=== PATIENT | female | born 1990 | race Caucasian/White ===

== ENCOUNTER 2020-04-18 12:49 | Emergency (ER) | payer BC ==
[~2020-04-18] VITALS: Ht 162.5 cm; Wt 59.8 kg
[~2020-04-18 12:49] MED LIST: BIRTH CONTROL PO; DCS100C PO; HYDR-3454 PO; HYDR200T46 PO
[2020-04-18 12:59] VITALS: BP 124/73
[2020-04-18 13:16] LABS: BILIRUBIN,URINE NEGATIVE (NEGATIVE); CLARITY,URINE CLEAR; COLOR,URINE YELLOW; GLUCOSE, URINE (UA) NEGATIVE (NEGATIVE); KETONES,URINE NEGATIVE (NEGATIVE); LEUKOCYTE ESTERASE ,URINE NEGATIVE (NEGATIVE); NITRITE,URINE NEGATIVE (NEGATIVE); PH,URINE 6.5 (5-9); PROTEIN,URINE NEGATIVE (NEGATIVE)
[2020-04-18 13:40] LABS: BACTERIA,URINE TRACE /HPF; SQUAMOUS EPITHELIAL CELL,UR 0-2 /HPF
--- NOTE | 2020-04-18 13:41 | ED GU-Female ---
General Chief Complaint: Abdominal/GI Problems Stated Complaint: LLQ PAIN ABOUT 8 WKS Nursing Triage Note: PT REPORTS TO ED FOR LEFT SIDED PELVIC PAIN THAT STARTED THIS MORNING. PT REPORTS TO BE ABOUT SEVEN WEEKS . DENIES ANY VAGINAL BLEEDING AT THIS TIME. PT ABM TO ROOM 07 WITHOUT DIFFICULTY. Nursing Sepsis Screen: No Definite Risk Source: patient Exam Limitations: no limitations History of Present Illness Date Seen by Provider: Apr 18, 2020 Time Seen by Provider: 13:21 Initial Comments Patient is a G1 at approximately 8 weeks with a positive urine a couple days ago who presents with 1 day of left lower quadrant abdominal sharp cramping pain that got better on its own by the time she arrived here. Started about an hour or 2 prior. She is having no vaginal bleeding, discharge. No nausea fever chills cough or shortness of air. She called and set up an appointment with Dr. Wilson on the . She has not had any imaging. She has not taken anything for the pain. She has a history of appendectomy. She says she has a history of kidney stones but this is nothing like that. Allergies and Home Medications Allergies Uncoded Allergies: STEROIDS (Allergy, Mild, 09/30/13) CHILD Home Medications Docusate Sodium 100 Mg Capsule, 1 CAP PO BID PRN for CONSTIPATION Prescribed by: IMER CAVAZOS on 10/01/13 0916 Hydrocodone Bit/Acetaminophen 1 Each Tablet, 1 TAB PO Q4H PRN for PAIN Prescribed by: IMER CAVAZOS on 10/01/13 0916 Hydroxychloroquine Sulfate 200 Mg Tab, 200 MG PO DAILY, (Reported) [ Control] , 1 TAB PO DAILY, (Reported) Patient Home Medication List Home Medication List Reviewed: Yes Review of Systems Review of Systems Constitutional: No chills, No fever EENTM: No ear discharge, No ear pain Respiratory: No cough, No short of breath Cardiovascular: No Hx of Intervention, No palpitations Gastrointestinal: abdominal pain; No constipation, No diarrhea Genitourinary: denies burning, denies discharge Musculoskeletal: No back pain, No joint pain Skin: No pruritus, No rash Psychiatric/Neurological: Denies Anxiety, Denies Depressed All Other Systemes Reviewed Negative Unless Noted: Yes Past Noisbet-Fbpwne-Eslwbu Hx Patient Social History Alcohol Use: Denies Use Recreational Drug Use: No Smoking Status: Never a Smoker 2nd Hand Smoke Exposure: No Recent Foreign Travel: No Contact w/Someone Who Travel: No Recent Infectious Disease Expo: No Recent Hopitalizations: No Seasonal Allergies Seasonal Allergies: No Past Medical History Surgeries: No Respiratory: No Cardiac: No Neurological: No Reproductive Disorders: No Gastrointestinal: Yes (LACTOSE INTOLERANCE, CELIAC) Musculoskeletal: Yes (JUVENILE RHEUMATOID ARTHRITIS) Arthritis, Rheumatoid Arthritis Endocrine: No Cancer: No Psychosocial: No Integumentary: No Blood Disorders: No Family Medical History Cancer GRANDFATHER (PATIENT UNSURE OF TYPE OF CANCER) Physical Exam Vital Signs Vital Signs - First Documented 04/18/20 12:59 Temp 36.6 Pulse 111 Resp 16 B/P (MAP) 124/73 (90) O2 Delivery Room Air Capillary Refill : Less Than 3 Seconds Height, Weight, BMI Height: 5'4.00" Weight: 110lbs. 0.0oz. 49.856240kc; 22.00 BMI Method: General Appearance: WD/WN, no apparent distress HEENT: PERRL/EOMI, pharynx normal Neck: full range of motion, normal inspection Cardiovascular: normal peripheral pulses, regular rate, rhythm Respiratory: no respiratory distress, no accessory muscle use Gastrointestinal: normal bowel sounds, soft, tenderness (Mild left lower quadrant tenderness without Rovsing sign, McBurney's point tenderness, mesenteric signs, psoas sign.) Skin: normal color, warm/dry Progress/Results/Core Measures Suspected Sepsis Recent Fever Within 48 Hours: No Infection Criteria Present: None New/Unexplained Altered Menta: No Sepsis Screen: No Definite Risk SIRS Temperature: Pulse: 111 Respiratory Rate: 16 Blood Pressure 124 /73 Mean: 90 Results/Orders Lab Results Laboratory Tests Test 04/18/20 13:03 Range/Units Urine Color YELLOW Urine Clarity CLEAR Urine pH 6.5 5-9 Urine Specific [place] 1.020 1.016-1.022 Urine Protein NEGATIVE NEGATIVE Urine Glucose (UA) NEGATIVE NEGATIVE Urine Ketones NEGATIVE NEGATIVE Urine Nitrite NEGATIVE NEGATIVE Urine Bilirubin NEGATIVE NEGATIVE Urine Urobilinogen 0.2 < = 1.0 MG/DL Urine Leukocyte Esterase NEGATIVE NEGATIVE Urine RBC (Auto) NEGATIVE NEGATIVE Urine RBC NONE /HPF Urine WBC NONE /HPF Urine Squamous Epithelial Cells 0-2 /HPF Urine Crystals NONE /LPF Urine Bacteria TRACE /HPF Urine Casts NONE /LPF Urine Mucus NEGATIVE /LPF Urine Culture Indicated NO My Orders Orders - ALEJANDRA SHAHID Ua Culture If Indicated (04/18/20 12:51) Urine Bedside (04/18/20 12:51) Vital Signs/I&O 04/18/20 12:59 Temp 36.6 Pulse 111 Resp 16 B/P (MAP) 124/73 (90) O2 Delivery Room Air Capillary Refill : Less Than 3 Seconds Blood Pressure Mean: 90 Progress Note #1: Time: 13:38 Progress Note She is no longer having any significant discomfort and declined any Tylenol. We did offer to send her to [facility] for ultrasound versus setting 1 up tomorrow and she says she is fine to wait. She is not having any bleeding. We have given her return precautions. Urinalysis pending. Progress Note #2: Time: 13:42 Progress Note Urinalysis is clear and the patient is in no acute distress. Departure Impression Primary Impression: Qualified Codes: Z3A.08 - 8 weeks gestation of Additional Impression: LLQ abdominal pain Disposition: 01 HOME, SELF-CARE Condition: Stable Departure-Patient Inst. Decision time for Depature: 13:40 Referrals: NO,LOCAL PHYSICIAN (PCP/Family) Primary Care Physician Patient Instructions: Acute Pelvic Pain (DC), Care Add. Discharge Instructions: Return to the ER if you are having intractable pelvic pain or bleeding. Nothing in the pelvis/vagina until cleared by your OB doctor. Tomorrow call outpatient and set up a pelvic ultrasound. Tylenol 1000 mg every 8 hours as necessary for pain. Warm heating pads. Benadryl 25 mg every 6 hours as necessary for allergies or insomnia. All discharge instructions reviewed with patient and/or family. Voiced understanding. Work/School Note: Work Release Form Date Seen in the Emergency Department: Apr 18, 2020 Return to Work: Apr 20, 2020 Restrictions: No Restrictions ALEJANDRA SHAHID Apr 18, 2020 13:41
== END 2020-04-18 13:50 | disposition home or self-care (01) ==
LOC: EDUNIT# 12:49 → ER 12:53
DX: O26.891 Other specified pregnancy related conditions, first trimester (principal); R10.32 Left lower quadrant pain; Z3A.08 8 weeks gestation of pregnancy; Z88.8 Allergy status to other drugs, medicaments and biological substances; Z80.9 Family history of malignant neoplasm, unspecified
CPT/HCPCS: 81000; 84703; 99282

== ENCOUNTER → 2020-04-19 | Outpatient (CLI) | payer BC ==
--- NOTE | 2020-04-19 12:14 | Diagnostic Imaging Report ---
Pelvic ultrasound. Indication: Pelvic pain. There are no prior ultrasound studies available for comparison. The prior CT abdomen/pelvis exam of 09/30/2013 did show acute appendicitis with associated free fluid in the pelvis. On this exam there appear to be either 2 contiguous or a single thinly septated cyst in the superior to the uterus. These cysts measure 5.4 x 5.2 x 6.6 and 4.6 x 4.5 x 4.9 cm in size. The cysts are probably arising from the ovary although is not certain which ovary they are arising from. There was blood flow to the ovary and there is no sign of torsion. The other ovary was not well visualized. There is no solid pelvic mass or free fluid collection noted. There is a small gestational sac within the endometrium of the uterus. The sac measures correspond to a 5 week 6 day previously +/- 1 week. However there is no evidence for an embryonic pole. This finding may be secondary to early live . The possibility of blighted ovum should also be considered. Correlation with the patient beta HCG levels would be recommended. The uterus itself is not enlarged. Impression: 1. There is a large thinly septated cystic mass or 2 separate cysts along the superior aspect of the uterine fundus. These are most likely ovarian in nature. There is no acute pelvic abnormality noted otherwise. 2. There is a gestational sac within the uterus but there is no evidence for an embryonic pole. Whether this is related to an early live or to a blighted ovum is not certain. Correlation with patient's beta hCG levels would be recommended. These results were conveyed to Dr. Indio Maier in the Emergency Room. Dictated by: Dictated on workstation # [id number]
== END ==
LOC: RAD 09:22
PROVIDERS: ATTEND Emergency Medicine
DX: N85.8 Other specified noninflammatory disorders of uterus (principal)
CPT/HCPCS: 76801; 76817

== ENCOUNTER 2020-05-17 18:46 | Emergency (ER) | payer BC ==
[~2020-05-17] VITALS: Ht 162 cm; Wt 61.6 kg
[2020-05-17] MEDS ORDERED: LACTATED RINGERS 1,000 ML IV ONE (19:00)
[2020-05-17 19:18] LABS: BASOPHILS % (AUTO) 0 % (0-10); EOSINOPHILS % (AUTO) 0 % (0-10); HEMATOCRIT 38 % (35-52); HEMOGLOBIN 13.3 g/dL (11.5-16.0); LYMPHOCYTES # (AUTO) 2.3 10^3/uL (1.0-4.0); LYMPHOCYTES % (AUTO) 11 % (12-44); MEAN CORPUSCULAR HEMOGLOBIN 31 pg (25-34); MEAN CORPUSCULAR HGB CONC 35 g/dL (32-36); MEAN CORPUSCULAR VOLUME 89 fL (80-99); MEAN PLATELET VOLUME 9.9 fL (9.0-12.2); MONOCYTES # (AUTO) 0.9 10^3/uL (0.0-1.0); MONOCYTES % (AUTO) 4 % (0-12); NEUTROPHILS # (AUTO) 16.8 10^3/uL (1.8-7.8); NEUTROPHILS % (AUTO) 84 % (42-75); PLATELET COUNT 343 10^3/uL (130-400); WHITE BLOOD COUNT 20.2 10^3/uL (4.3-11.0)
[2020-05-17 19:25] LABS: BILIRUBIN,URINE NEGATIVE (NEGATIVE); CLARITY,URINE CLEAR; COLOR,URINE YELLOW; GLUCOSE, URINE (UA) NEGATIVE (NEGATIVE); KETONES,URINE 2+ (NEGATIVE); LEUKOCYTE ESTERASE ,URINE NEGATIVE (NEGATIVE); NITRITE,URINE NEGATIVE (NEGATIVE); PH,URINE 7.5 (5-9); PROTEIN,URINE NEGATIVE (NEGATIVE)
--- NOTE | 2020-05-17 19:27 | ED Abdominal Pain ---
General Chief Complaint: Abdominal/GI Problems Stated Complaint: , LLQ ABD AND BACK PAIN Nursing Triage Note: Pt ambulatory to ER with c/o left flank pain and left lower abdominal/pelvic pain that began at around 02:30 AM today. Pt has had nausea and vomiting today. Pt is 10 weeks with due date of December 19, 2020. Sepsis Screen: No Definite Risk Source of Information: Patient History of Present Illness Date Seen by Provider: May 17, 2020 Time Seen by Provider: 18:56 Initial Comments PT ARRIVES VIA POV FROM HOME C/O LEFT FLANK PAIN SINCE 199 THIS AM ALSO HAS PAIN IN LLQ AND SUPRAPUBIC AREA NO PROBLEMS URINATING AND NO HEMATURIA NO FEVER/SWEATS/CHILLS NO DIARRHEA OR CONSTIPATION NO RECENT ILLNESS, NO KNOWN SICK CONTACTS OR EXPOSURE TO COVID-19 PT IS APPROXIMATELY 10 WEEKS WITH LMP 02/18/20 AND EDC OF 12/20/19, PER PT. HAS HAD 2 ULTRASOUNDS WITH THIS --SHOWING IUP, HAD OVARIAN CYST WHICH RUPTURED AND REPEAT ULTRASOUND WAS NORMAL, PER PT SEEN HERE 04/18/20 FOR LLQ PAIN, AND HAD OUTPT ULTRASOUND HERE 04/19/--IUP WITH GESTATIONAL SAC OF 5-6 WEEKS SIZE, AND OVARIAN CYST. HAD FOLLOW UP ULTRASOUND WITH HER OB DR. AT [facility] HAS HAD ONGOING NAUSEA WITH , BUT TODAY WAS FIRST TIME SHE HAS VOMITED--EMESIS X 2-3 TODAY--LAST TIME WAS AROUND NOON PT IS ABLE TO KEEP LIQUIDS DOWN NO VAGINAL BLEEDING OR ABNORMAL DISCHARGE, NO DYSPAREUNIA PT IS AB 0 PICKED UP RX TODAY FOR DICLEGIS FOR N/V WITH LAST OB VISIT 04/26/20, NEXT VISIT IS NEXT WEEK HAS NOT ATTEMPTED TO CONTACT HER OB DR AT ANY TIME TODAY FOR THIS PROBLEM HAS NOT TAKEN ANYTHING FOR PAIN AT ANY TIME PT HAS HAD KIDNEY STONES IN THE PAST, PASSED THEM ON HER OWN HAS NOT FOLLOWED UP WITH UROLOGIST STATES THIS DOES NOT FEEL THE SAME KIDNEY STONES HAS HAD APPENDECTOMY, OTHERWISE NO ABDOMINAL SURGERIES 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 [facility] Allergies and Home Medications Allergies Uncoded Allergies: STEROIDS (Allergy, Mild, 09/30/13) CHILD Home Medications Docusate Sodium 100 Mg Capsule, 1 CAP PO BID PRN for CONSTIPATION Prescribed by: IMER CAVAZOS on 10/01/13 0916 Hydrocodone Bit/Acetaminophen 1 Each Tablet, 1 TAB PO Q4H PRN for PAIN Prescribed by: IMER CAVAZOS on 10/01/13 0916 Hydroxychloroquine Sulfate 200 Mg Tab, 200 MG PO DAILY, (Reported) [ Control] , 1 TAB PO DAILY, (Reported) Patient Home Medication List Home Medication List Reviewed: Yes Review of Systems Review of Systems Constitutional: no symptoms reported; No chills, No diaphoresis, No dizziness, No fever EENTM: No Symptoms Reported Respiratory: No Symptoms Reported Cardiovascular: No Symptoms Reported Gastrointestinal: See HPI, Abdominal Pain; Denies Constipated, Denies Diarrhea; Nausea, Vomiting Genitourinary: See HPI; Denies Burning, Denies Discharge, Denies Drainage, Denies Frequency; Flank Pain; Denies Hematuria, Denies Incontinence, Denies Pain, Denies Urgency Musculoskeletal: see HPI, back pain Skin: no symptoms reported Psychiatric/Neurological: No Symptoms Reported Endocrine: No Symptoms Reported Hematologic/Lymphatic: No Symptoms Reported Past Wcxvltl-Ijnrxa-Uzcjgr Hx Past Med/Social Hx: Reviewed and Corrections made Patient Social History Alcohol Use: Occasionally Uses Smoking Status: Never a Smoker 2nd Hand Smoke Exposure: No Recent Infectious Disease Expo: No Recent Hopitalizations: No Seasonal Allergies Seasonal Allergies: No Past Medical History Surgeries: Yes Appendectomy Respiratory: No Cardiac: No Neurological: No : Yes Last Menstrual Period: Feb 18, 2020 Hx : 1 Hx Para: 0 Hx Total # of Abortions (Sp): 0 Reproductive Disorders: No Female Reproductive Disorders: Ovarian Cyst Genitourinary: Yes Kidney Stones Gastrointestinal: Yes (LACTOSE INTOLERANCE, CELIAC; APPENDECTOMY) Musculoskeletal: Yes (JUVENILE RHEUMATOID ARTHRITIS-DX AGE 18 OR 19) Arthritis, Rheumatoid Arthritis Endocrine: No HEENT: No Cancer: No Psychosocial: No Integumentary: No Blood Disorders: No Family Medical History Cancer GRANDFATHER (PATIENT UNSURE OF TYPE OF CANCER) Physical Exam Vital Signs Vital Signs - First Documented 05/17/20 18:53 Temp 36.9 Pulse 106 Resp 14 B/P (MAP) 131/83 (99) Pulse Ox 98 O2 Delivery Room Air Capillary Refill : Less Than 3 Seconds Height/Weight/BMI Height: 5'4.00" Weight: 110lbs. 0.0oz. 49.073690tg; 23.00 BMI Method: General Appearance: WD/WN, no apparent distress, other (WALKS UPRIGHT AND MOVES WITHOUT DIFFICULTY. DOES NOT APPEAR ILL OR TO BE IN ANY DISCOMFORT OR DISTRESS) HEENT: PERRL/EOMI; No scleral icterus (R), No scleral icterus (L), No pale conjunctivae (R), No pale conjunctivae (L) Neck: normal inspection Respiratory: normal breath sounds, no respiratory distress, no accessory muscle use Cardiovascular: regular rate, rhythm, no murmur Gastrointestinal: normal bowel sounds, soft, no organomegaly, no pulsatile mass; No distended, No guarding, No rebound; tenderness (SUPRAPUBIC, LLQ AND LEFT FLANK TENDERNESS); No hernia, No mass Extremities: normal inspection Back: no vertebral tenderness, CVA tenderness (L) 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, no motor/sensory deficits, a lert, normal mood/affect, oriented x 3 Skin: normal color, warm/dry; No rash Progress/Results/Core Measures Results/Orders Lab Results Laboratory Tests Test 05/17/20 19:03 05/17/20 19:04 Range/Units Urine Color YELLOW Urine Clarity CLEAR Urine pH 7.5 5-9 Urine Specific [place] <=1.005 1.016-1.022 Urine Protein NEGATIVE NEGATIVE Urine Glucose (UA) NEGATIVE NEGATIVE Urine Ketones 2+ H NEGATIVE Urine Nitrite NEGATIVE NEGATIVE Urine Bilirubin NEGATIVE NEGATIVE Urine Urobilinogen 0.2 < = 1.0 MG/DL Urine Leukocyte Esterase NEGATIVE NEGATIVE Urine RBC (Auto) NEGATIVE NEGATIVE Urine RBC NONE /HPF Urine WBC 2-5 /HPF Urine Squamous Epithelial Cells 2-5 /HPF Urine Crystals PRESENT H /LPF Urine Amorphous Sediment RARE SAL PHOSPHATE H /LPF Urine Bacteria TRACE /HPF Urine Casts NONE /LPF Urine Mucus NEGATIVE /LPF Urine Culture Indicated NO Urine Opiates Screen NEGATIVE NEGATIVE Urine Oxycodone Screen NEGATIVE NEGATIVE Urine Methadone Screen NEGATIVE NEGATIVE Urine Propoxyphene Screen NEGATIVE NEGATIVE Urine Barbiturates Screen NEGATIVE NEGATIVE Ur Tricyclic Antidepressants Screen NEGATIVE NEGATIVE Urine Phencyclidine Screen NEGATIVE NEGATIVE Urine Amphetamines Screen NEGATIVE NEGATIVE Urine Methamphetamines Screen NEGATIVE NEGATIVE Urine Benzodiazepines Screen NEGATIVE NEGATIVE Urine Cocaine Screen NEGATIVE NEGATIVE Urine Cannabinoids Screen NEGATIVE NEGATIVE White Blood Count 20.2 H 4.3-11.0 10^3/uL Red Blood Count 4.30 3.80-5.11 10^6/uL Hemoglobin 13.3 11.5-16.0 g/dL Hematocrit 38 35-52 % Mean Corpuscular Volume 89 80-99 fL Mean Corpuscular Hemoglobin 31 25-34 pg Mean Corpuscular Hemoglobin Concent 35 32-36 g/dL Red Cell Distribution Width 11.9 10.0-14.5 % Platelet Count 343 130-400 10^3/uL Mean Platelet Volume 9.9 9.0-12.2 fL Immature Granulocyte % (Auto) 0 % Neutrophils (%) (Auto) 84 H 42-75 % Lymphocytes (%) (Auto) 11 L 12-44 % Monocytes (%) (Auto) 4 0-12 % Eosinophils (%) (Auto) 0 0-10 % Basophils (%) (Auto) 0 0-10 % Neutrophils # (Auto) 16.8 H 1.8-7.8 10^3/uL Lymphocytes # (Auto) 2.3 1.0-4.0 10^3/uL Monocytes # (Auto) 0.9 0.0-1.0 10^3/uL Eosinophils # (Auto) 0.0 0.0-0.3 10^3/uL Basophils # (Auto) 0.0 0.0-0.1 10^3/uL Immature Granulocyte # (Auto) 0.1 0.0-0.1 10^3/uL Neutrophils % (Manual) 80 % Lymphocytes % (Manual) 14 % Monocytes % (Manual) 6 % Band Neutrophils % Blood Morphology Comment NORMAL Sodium Level 136 135-145 MMOL/L Potassium Level 3.3 L 3.6-5.0 MMOL/L Chloride Level 105 98-107 MMOL/L Carbon Dioxide Level 21 21-32 MMOL/L Anion Gap 10 5-14 MMOL/L Blood Urea Nitrogen 6 L 7-18 MG/DL Creatinine 0.66 0.60-1.30 MG/DL Estimat Glomerular Filtration Rate > 60 BUN/Creatinine Ratio 9 Glucose Level 141 H 70-105 MG/DL Calcium Level 9.5 8.5-10.1 MG/DL Corrected Calcium 9.3 8.5-10.1 MG/DL Total Bilirubin 0.3 0.1-1.0 MG/DL Aspartate Amino Transf (AST/SGOT) 16 5-34 U/L Alanine Aminotransferase (ALT/SGPT) 11 0-55 U/L Alkaline Phosphatase 48 40-136 U/L Total Protein 7.4 6.4-8.2 GM/DL Albumin 4.3 3.2-4.5 GM/DL Amylase Level 32 25-125 U/L Lipase 29 8-78 U/L Human Chorionic Gonadotropin, Quant [id number] H <5 MIU/ML My Orders Orders - EMILY MARINO Raza DO Ua Culture If Indicated (05/17/20 18:55) Ed Iv/Invasive Line Start (05/17/20 18:56) Amylase (05/17/20 18:56) Cbc With Automated Diff (05/17/20 18:56) Comprehensive Metabolic Panel (05/17/20 18:56) Drug Screen Stat (Urine) (05/17/20 18:56) Hcg,Quantitative (05/17/20 18:56) Lipase (05/17/20 18:56) Ed Iv/Invasive Line Start (05/17/20 18:56) Ed Iv/Invasive Line Start (05/17/20 18:56) Lactated Ringers (Lr 1000 Ml Iv Solution (05/17/20 19:00) Manual Differential (05/17/20 19:04) Medications Given in ED Vital Signs/I&O 05/17/20 05/17/20 18:53 20:00 Temp 36.9 36.9 Pulse 106 90 Resp 14 14 B/P (MAP) 131/83 (99) 117/77 Pulse Ox 98 100 O2 Delivery Room Air Room Air Blood Pressure Mean: 99 Progress Progress Note : Progress Note UNABLE TO DETECT FHT'S AT THIS TIME. GIVEN IV FLUIDS DECLINES NAUSEA MEDICATION OR TYLENOL AT THIS TIME OR ANYTHING FOR PAIN NO ULTRASOUND AVAILABLE AT THIS TIME. WILL ARRANGE FOR OUTPATIENT ULTRASOUND PT IS AGREEABLE TO THIS PLAN Departure Impression Primary Impression: LLQ abdominal pain Additional Impressions: Acute left flank pain 10 weeks gestation of Disposition: HOME, SELF-CARE Condition: Stable Departure-Patient Inst. Referrals: SASHA CHIU,LOCAL PHYSICIAN (PCP) Primary Care Physician Patient Instructions: Abdominal Pain, Adult ED, Flank Pain (DC), Morning Sickness (DC), Stomach Pain in Early Add. Discharge Instructions: LOTS OF CLEAR LIQUIDS--WATER, BROTH, JELLO, GATORADE TYLENOL NEEDED FOR PAIN TAKE VITAMINS AND MORNING SICKNESS MEDICATIONS DAILY CALL IN AM TO SCHEDULE OUTPATIENT ULTRASOUND FOLLOW UP WITH YOUR DR NEXT WEEK SCHEDULED OR SOONER IF SYMPTOMS WORSEN, OR RETURN TO ER IF PAIN IS SEVERE All discharge instructions reviewed with patient and/or family. Voiced unde rstanding. EMILY MARINO DO May 17, 2020 19:27
[2020-05-17 19:33] LABS: AMPHETAMINE SCREEN, URINE NEGATIVE (NEGATIVE); BARBITURATE SCREEN URINE NEGATIVE (NEGATIVE); BENZODIAZEPINES SCREEN URINE NEGATIVE (NEGATIVE); CANNABINOID SCREEN, URINE NEGATIVE (NEGATIVE); COCAINE SCREEN URINE NEGATIVE (NEGATIVE); METHADONE STAT NEGATIVE (NEGATIVE); METHAMPHETAMINE SCREEN URINE S NEGATIVE (NEGATIVE); OPIATE SCREEN URINE NEGATIVE (NEGATIVE); OXYCODONE STAT NEGATIVE (NEGATIVE); PROPOXYPHENE STAT NEGATIVE (NEGATIVE); TRICYCLIC ANTIDEPRESSANTS SCRE NEGATIVE (NEGATIVE)
[2020-05-17 19:35] LABS: BACTERIA,URINE TRACE /HPF
[2020-05-17 19:36] LABS: AMORPHOUS SEDIMENT,UR RARE AMOR PHOSPHATE /LPF
[2020-05-17 19:41] LABS: ALANINE AMINOTRANSFERASE 11 U/L (0-55); ALBUMIN 4.3 GM/DL (3.2-4.5); ALKALINE PHOSPHATASE 48 U/L (40-136); AMYLASE 32 U/L (25-125); BILIRUBIN,TOTAL 0.3 MG/DL (0.1-1.0); BUN/CREATININE RATIO 9; CALCIUM 9.5 MG/DL (8.5-10.1); CARBON DIOXIDE 21 MMOL/L (21-32); CHLORIDE 105 MMOL/L (98-107); CREATININE SERUM 0.66 MG/DL (0.60-1.30); GFR ESTIMATED > 60; GLUCOSE 141 MG/DL (70-105); LIPASE 29 U/L (8-78); POTASSIUM 3.3 MMOL/L (3.6-5.0); SODIUM 136 MMOL/L (135-145); TOTAL PROTEIN 7.4 GM/DL (6.4-8.2)
[2020-05-17 19:55] LABS: LYMPHOCYTES % (MANUAL) 14 %; MONOCYTES % (MANUAL) 6 %; NEUTROPHILS % (MANUAL) 80 %; RBC MORPH NORMAL
[2020-05-17 20:00] VITALS: BP 117/77
== END 2020-05-17 20:05 | disposition home or self-care (01) ==
LOC: EDUNIT# 18:46 → ER 18:49
DX: O26.891 Other specified pregnancy related conditions, first trimester (principal); R10.32 Left lower quadrant pain; Z3A.10 10 weeks gestation of pregnancy; Z80.9 Family history of malignant neoplasm, unspecified; Z88.8 Allergy status to other drugs, medicaments and biological substances
CPT/HCPCS: 36415; 80053; 80306; 81000; 82150; 83690; 84702; 85007; 85027

== ENCOUNTER → 2020-05-19 | Outpatient (CLI) | payer BC ==
--- NOTE | 2020-05-19 16:27 | Diagnostic Imaging Report ---
PROCEDURE: US Renal Bilateral. TECHNIQUE: Multiple real-time grayscale images were obtained over the kidneys in various projections bilaterally. INDICATION: Left-sided pain during . COMPARISON: None available. FINDINGS: The right kidney measures 10 cm in length. The left kidney measures 10 cm in length. There is no hydronephrosis, mass or shadowing echogenic calculi on either side. Urinary bladder is normally filled without wall thickening. Both ureteral jets are identified indicative of ureteral patency. IMPRESSION: 1. No hydronephrosis or shadowing echogenic calculi on either side. Dictated by: Dictated on workstation # [id number]
== END ==
LOC: RAD 15:15
PROVIDERS: ATTEND Emergency Medicine
DX: O26.891 Other specified pregnancy related conditions, first trimester (principal); Z3A.10 10 weeks gestation of pregnancy; Z87.442 Personal history of urinary calculi
CPT/HCPCS: 76770